=== PATIENT | female | born 1995 | race Caucasian/White ===

== ENCOUNTER 2019-12-05 20:51 | Emergency (ER) | payer OTHER ==
[~2019-12-05] VITALS: Ht 160 cm; Wt 70.5 kg
[2019-12-05 20:53] VITALS: BP 153/79; TEMP 99.1
[2019-12-05 22:15] LABS: BASO % 0.4 % (0.0-2.0); EOS # 0.1 (0.0-0.7); GRAN # 5.4 (1.4-6.5); GRAN % 67.9 % (42.2-75.2); HEMATOCRIT 38.7 % (37.0-47.0); HEMOGLOBIN 13.1 g/dl (12.5-16.0); LYMPH # 1.9 (1.2-3.4); LYMPH % 23.8 % (20.0-51.0); MEAN CELL VOLUME 91 fl (80.0-100.0); MEAN CORPUSCULAR HEMOGLOBIN 31 pg (27.0-31.0); MEAN CORPUSCULAR HGB CONC 34 g/dl (33.0-37.0); MEAN PLATELET VOLUME 9.7 fl (7.4-10.4); MONO # 0.5 (0.1-0.6); MONO % 6.5 % (1.7-9.3); PLATELET COUNT 223 K/mm3 (130-400); RED BLOOD COUNT 4.24 M/mm3 (4.10-5.30)
[2019-12-05] MEDS ORDERED: ATIVAN 1MG T1 MG/TAB PO (23:21)
[2019-12-05] MEDS ORDERED: PROTONIX 40MG T40 MG PO (23:21)
[2019-12-06 00:05] VITALS: PULSE 72
== END 2019-12-06 00:05 | disposition home or self-care (01) ==
LOC: COL.ER 20:51
PROVIDERS: Physician Assistant
DX: F41.9 Anxiety disorder, unspecified (principal); R10.13 Epigastric pain